=== PATIENT | female | born 1990 | race Caucasian/White ===

== ENCOUNTER → 2017-11-29 | Outpatient (CLI) | payer OTHER | LOC: FIMAGING 11:22 | PROVIDERS: ATTEND Orthopaedic Surgery | DX: S82.292A Other fracture of shaft of left tibia, initial encounter for closed fracture (principal); S82.832A Other fracture of upper and lower end of left fibula, initial encounter for closed fracture; S72.432A Displaced fracture of medial condyle of left femur, initial encounter for closed fracture | CPT/HCPCS: 73700-PO ==